=== PATIENT | female | born 1945 | race Caucasian/White ===

== ENCOUNTER → 2018-05-02 | Outpatient (CLI) | payer MEDICARE ==
[~2018-05-02] MED LIST: ASPI-496 PO; CA C1TAB59 PO; CHOL200024 PO; CYAN50003 PO; DIPH25CA61 PO; GABA-826 PO; LEVO88TA4 PO; METO25TA2 PO; MULT-717 PO; TAMS0.4C2 PO; VIT1CAPS10 PO
== END | disposition home or self-care (01) ==
LOC: CFH 14:43
PROVIDERS: ATTEND Internal Medicine Cardiovascular Disease
DX: I34.0 Nonrheumatic mitral (valve) insufficiency (principal); I35.8 Other nonrheumatic aortic valve disorders; I10 Essential (primary) hypertension
CPT/HCPCS: 93306